=== PATIENT | female | born 1935 | race Caucasian/White ===

== ENCOUNTER 2018-12-03 13:00 | Emergency (ER) | payer OTHER, BC ==
[2018-12-03 13:40] VITALS: BP 158/98; PULSE 82; TEMP 97.9; BMI 22.1
--- NOTE | 2018-12-03 14:00 | PDOC ---
History of Present Illness - General Chief Complaint: Pain Stated Complaint: LEFT LATERAL RIB PAIN Time Seen by Provider: 12/03/18 13:12 History Source: Patient Exam Limitations: No Limitations - History of Present Illness Initial Comments: 12/03/18 14:12 83y F hx of RA, HL, HTN presents with L rib pain. Pt states that she was donig well until a few days ago, noticed she started having intermittnt L back/rib/ scapula pain with numnbess on the L arm. Pain seemd to worsend more around 12pm when she was having lunch. Pt denies any trauma/falls/injuries. pt notse the pain seems worse when she moves her L arm incertain positions. denies any sob, n/v, diaprhosis, max, chest pain. notse she also has chronic L arm pain due to prior L humeral fracture that was repaired but 'didnt heal properly'. pt denies any new numbenmss/tingling/weakness of the extermities. denies headache, neck pain, fever/chills, abd pain, diarrhae, dysuria. Past History - Past Medical History Allergies/Adverse Reactions: Allergies Allergy/AdvReac Type Severity Reaction Status Date / Time codeine Allergy Intermediate PALPATATION Verified 04/29/13 08:06 S Home Medications: Ambulatory Orders Albuterol 0.083% Nebulizer Ana Luisa [Ventolin 0.083%] 1 neb NEB QID PRN 04/27/13 Metformin HCl [Riomet] 500 mg PO BID 04/27/13 Methotrexate [Mexate] 5 mg PO Q7D 04/27/13 Sertraline HCl [Zoloft] 100 mg PO DAILY 04/27/13 Hydroxychloroquine Sulfate [Plaquenil] 200 mg PO BID 12/03/18 predniSONE [Deltasone -] 4 mg PO DAILY 12/03/18 Anemia: No Asthma: Yes Cancer: No Cardiac Disorders: No CVA: No COPD: No Dementia: No Diabetes: Yes (TYPE II) GI Disorders: Yes (GERD) Disorders: Yes (INCONTINENCE) HTN: Yes Hypercholesterolemia: Yes Liver Disease: No Seizures: No Thyroid Disease: No Other medical history: RHEUMATOID ARTHRITIS, CHRONIC LEFT ARM PAIN/NUMBNESS - Surgical History Abdominal Surgery: Yes Appendectomy: No Cardiac Surgery: No Cholecystectomy: Yes Lung Surgery: No Neurologic Surgery: No Orthopedic Surgery: Yes - Suicide/Smoking/Psychosocial Hx Smoking Status: No Smoking History: Former smoker Have you smoked in the past 12 months: No Number of Cigarettes Smoked Daily: 0 If you are a former smoker, when did you quit?: 40 YEARS AGO Information on smoking cessation initiated: No Hx Alcohol Use: No Drug/Substance Use Hx: No Substance Use Type: None Hx Substance Use Treatment: No Review of Systems - Review of Systems Able to Perform ROS?: Yes Comments:: 12/03/18 14:16 CONSTITUTIONAL: No reported: Fever, Chills, Diaphoresis, Generalized Weakness, Malaise, Loss of Appetite HEENT: No reported: Rhinorrhea, Nasal Congestion, Throat Pain, Throat Swelling, Difficulty Swallowing, Mouth Swelling, Ear Pain, Eye Pain, Visual Changes CARDIOVASCULAR: No reported: Chest Pain, Syncope, Palpitations, Irregular Heart Rate, Lightheadedness, Peripheral Edema RESPIRATORY: No reported: Cough, Shortness of Breath, SOB with Exertion, Orthopnea, Wheezing , Stridor, Hemoptysis GASTROINTESTINAL: No reported: Abdominal pain, Abdominal Distension, Nausea, Vomiting, Diarrhea, Constipation, Melena, Hematochezia GENITOURINARY: No reported: Dysuria, Frequency, Urgency, Hesitancy, Flank Pain, Genital Pain MUSCULOSKELETAL: +L rib/shoulder pain No reported: Myalgia, Arthralgia, Joint Swelling, Neck Pain SKIN: No reported: Rash, Itching, Pallor HEMEATOLOGIC/IMMUNOLOGIC: No reported: Easy Bleeding, Easy Bruising, Lymphadenopathy, Frequent infections ENDOCRINE: No reported: Unexplained Weight Gain, Unexplained Weight Loss, Heat Intolerance , Cold Intolerance NEUROLOGIC: No reported: Headache, Focal Weakness, Vertigo, Lightheadedness, Unsteady Gait, Seizure, Mental Status Changes, Incontinence PSYCHIATRIC: No reported: Anxiety, Depression *Physical Exam - Vital Signs Last Vital Signs Temp Pulse Resp BP Pulse Ox 97.9 F 82 19 158/98 97 12/03/18 13:09 12/03/18 13:09 12/03/18 13:09 12/03/18 13:09 12/03/18 13:09 - Physical Exam Comments: 12/03/18 14:16 GENERAL: The patient is awake, alert, and fully oriented, Nontoxic - in no acute distress. HEAD: Normocephalic, atraumatic. EYES: extraocular movements intact, sclera anicteric, conjunctiva clear. ENT: Normal voice, Moist mucous membranes. NECK: Normal range of motion, supple LUNGS: Breath sounds equal, clear to auscultation bilaterally. No wheezes, no rhonchi, no rales. HEART: Regular rate and rhythm, without murmur, rub or gallop. ABDOMEN: Soft, nontender, No guarding, no rebound.No CVA tenderness EXTREMITIES: mlid ttp to anterior L shoulder/humreus and to the soft tissue inferior to the L scapula, no crepitus, no ecchynmosis, pain reproduced with shoulder abduction, strength otherwise 5/5 in upper/lower extremities, radial pulses symmetric, sensatio nintact throughout MSK: No focal rib ttp, no rashes, NEUROLOGICAL: No facial assymetry, Normal speech, PSYCH: Normal mood, normal affect. SKIN: Warm, Dry, normal turgor, 12/03/18 14:18 Moderate Sedation - Procedure Monitoring Vital Signs: Procedure Monitoring Vital Signs Temperature 97.9 F 12/03/18 13:09 Pulse Rate 82 12/03/18 13:09 Respiratory Rate 19 12/03/18 13:09 Blood Pressure 158/98 12/03/18 13:09 O2 Sat by Pulse Oximetry (%) 97 12/03/18 13:09 Heart Score/ECG Review - ECG Impressions Comment:: 12/03/18 14:18 EKG: Rate of 85 Normal axis normal r wave progression no st changes suggestive of ischemia impression: NSR ED Treatment Course - LABORATORY CBC & Chemistry Diagram: 12/03/18 14:20 12/03/18 14:20 - RADIOLOGY Radiology Studies Ordered: Category Date Time Status CHEST PA & LAT [RAD] Stat Radiology 12/03/18 13:37 Ordered SHOULDER-LEFT [RAD] Stat Radiology 12/03/18 13:58 Ordered Medical Decision Making - Medical Decision Making 12/03/18 14:19 suspect msk cause - as symptoms worse with movement of the arm and is reproducible pts BP in either arm symmetric, and pulse symetric- doubt dissection - will also obtain formal pa/lateral cxr to r/o mediastinal widening consider acs -w ill obtain ekg/trop will give tylenol for pain 12/03/18 15:12 upon further discussion - pt states she fell 3 weeks ago, had fallen on her R side wit mild R rib pain, has been using a heating pad on her ribs, but is feeling much better. possibilty of over use injury if she is using her L arm to compensate for her R sided injury. no signs of widned aorta no her xray [place] xray noted for old humeral fx wo acute injury 12/03/18 17:26 trop neg x 2 suspect her pain is msk in origin will dc with supportive care return precautions were discussed I discussed the physical exam findings, ancillary test results and final diagnoses with the patient. I answered all of the patient's questions. The patient was satisfied with the care received and felt comfortable with the discharge plan and treatment plan. The patient will call their primary care physician within 24 hours to arrange follow-up and will return to the Emergency Department with any new, persistent or worsening symptoms. *DC/Admit/Observation/Transfer Diagnosis at time of Disposition: Back pain Qualifiers: Back pain location: back pain in unspecified location Chronicity: acute Back pain laterality: left Qualified Code(s): M54.9 - Dorsalgia, unspecified - Discharge Dispostion Disposition: HOME Condition at time of disposition: Improved Decision to Admit order: No - Referrals Referrals: Vickie Juan MD [Primary Care Provider] - - Patient Instructions Printed Discharge Instructions: DI for Thoracic Back Pain Additional Instructions: Return to the emergency department immediately with ANY new, persistent or worsening symptoms including chest pain, shortness of breath, coghing blood or any other concerns. Take tylenol and ibuprofen every 6 hours for the next 3 days. Rest your arm. Use a heating pad for comfort. You MUST call and follow up with your doctor in 3-4 days for further evaluation of your symptoms. Results were discussed with you. Please make sure your doctor reviews the results of your emergency evaluation. Print Language: NICARAGUAN - Post Discharge Activity
[2018-12-03] MEDS ORDERED: ACETAMINOPHEN 325 MG TABLET (FP) PO ONE (14:18)
[2018-12-03] MEDS ORDERED: ACETAMINOPHEN 325 MG TABLET (FP) ONE (14:29)
[2018-12-03 14:44] LABS: BASO % 0.5 % (0-2.0); EOS % 2.2 % (0-4.5); HEMATOCRIT 35.7 % (32.4-45.2); HEMOGLOBIN 11.5 GM/dl (10.7-15.3); LYMPH % 12.3 % (8-40); MCH 30.8 pg (25.7-33.7); MCHC 32.2 g/dl (32.0-36.0); MEAN CELL VOLUME 95.7 fl (80-96); MEAN PLT VOLUME 7.4 fl (7.5-11.1); MONO % 6.2 % (3.8-10.2); NEUT % 78.8 % (42.8-82.8); PLATELET COUNT 389 K/MM3 (134-434); RBC 3.74 M/mm3 (3.60-5.2); RDW 16.2 % (11.6-15.6); WHITE BLOOD COUNT 9.5 K/mm3 (4.0-10.8)
[2018-12-03 15:04] LABS: ALBUMIN 3.6 g/dl (3.4-5.0); ALK PHOS 65 U/L (45-117); ANION GAP 15 MMOL/L (8-16); BILIRUBIN,TOTAL 0.7 mg/dl (0.2-1); BLOOD UREA NITROGEN 21 mg/dl (7-18); CALCIUM 9.4 mg/dl (8.5-10); CHLORIDE 95 mmol/L (98-107); CO2 26 mmol/L (21-32); CREATININE 0.6 mg/dl (0.55-1.3); GLUCOSE,RANDOM 89 mg/dl (74-106); POTASSIUM 4.2 mmol/L (3.5-5.1); SGOT/AST 29 U/L (15-37); SGPT/ALT 24 U/L (13-61); SODIUM 136 mmol/L (136-145); TOT PROT 6.7 g/dl (6.4-8.2)
--- NOTE | 2018-12-03 15:42 | EKG ---
Test Reason : Blood Pressure : / mmHG Vent. Rate : 085 BPM Atrial Rate : 085 BPM P-R Int : 156 ms QRS Dur : 074 ms QT Int : 378 ms P-R-T Axes : 066 029 058 degrees QTc Int : 449 ms NORMAL SINUS RHYTHM WITH SINUS ARRHYTHMIA NORMAL ECG WHEN COMPARED WITH ECG OF 23-AUG-2008 15:07, NO SIGNIFICANT CHANGE WAS FOUND Confirmed by HUNTER FUNEZ MD ([id number]) on 12/03/2018 3:41:46 PM Referred By: TRACY CARR Confirmed By:HUNTER FUNEZ MD
[2018-12-03] MEDS ORDERED: IBUPROFEN 400 MG TABLET (FP) PO ONE ×2 (17:09→17:13)
== END 2018-12-03 17:37 | disposition home or self-care (01) ==
LOC: FER 13:00
DX: M54.9 Dorsalgia, unspecified (principal); M54.6 Pain in thoracic spine; M06.9 Rheumatoid arthritis, unspecified; I10 Essential (primary) hypertension; E11.9 Type 2 diabetes mellitus without complications; E78.00 Pure hypercholesterolemia, unspecified; J45.909 Unspecified asthma, uncomplicated; K21.9 Gastro-esophageal reflux disease without esophagitis; Z88.5 Allergy status to narcotic agent; Z79.84 Long term (current) use of oral hypoglycemic drugs
CPT/HCPCS: 36415; 71046-TC-FY; 73030-TC-LT-FY; 80053; 82550; 82553; 84484; 85025; 93005; 99283-25

== ENCOUNTER 2019-04-12 15:00 | Emergency (ER) | payer OTHER, BC ==
--- NOTE | 2019-04-12 15:15 | PDOC ---
History of Present Illness - General Chief Complaint: Chest Pain Stated Complaint: CHEST HEAVINESS FOR 2 1/2 WKS Time Seen by Provider: 04/12/19 15:14 History Source: Patient, Family (Daughter) Exam Limitations: No Limitations - History of Present Illness Initial Comments: 04/12/19 16:06 Deena Hwang is a 83yF with PMHx of rheumatoid arthritis, diabetes, and asthma presenting with chest tightness. Tightness started 1 mo ago, worsened over 2 weeks then gradually improved. Tightness mild, substernal region, constant throughout day. Does not radiate to chest or arms. Tightness better with exercise. Associated infrequent coughing and mild shortness of breath with chest tightness. Has been taking inhaler 2x/day for last month with questionable symptom improvement. Heavy Equipment Operator/Paver told her to go to ED last week but presented today because she had a road train driver. Past History - Travel Traveled outside of the country in the last 30 days: No Close contact w/someone who was outside of country & ill: No - Past Medical History Allergies/Adverse Reactions: Allergies Allergy/AdvReac Type Severity Reaction Status Date / Time codeine Allergy Intermediate PALPATATION Verified 04/29/13 08:06 S Home Medications: Ambulatory Orders Albuterol 0.083% Nebulizer Ana Luisa [Ventolin 0.083%] 1 neb NEB QID PRN 04/27/13 Sertraline HCl [Zoloft] 100 mg PO DAILY 04/27/13 Hydroxychloroquine Sulfate [Plaquenil] 200 mg PO DAILY 12/03/18 predniSONE [Deltasone -] 4 mg PO DAILY 12/03/18 Adalimumab [Humira] 10 mg SQ 04/12/19 Metformin HCl [Glucophage] 500 mg PO BID 04/12/19 Anemia: No Asthma: Yes Cancer: No Cardiac Disorders: No CVA: No COPD: No Dementia: No Diabetes: Yes (TYPE II) GI Disorders: Yes (GERD) Disorders: Yes (INCONTINENCE) HTN: Yes Hypercholesterolemia: Yes Liver Disease: No Seizures: No Thyroid Disease: No - Surgical History Abdominal Surgery: Yes Appendectomy: No Cardiac Surgery: No Cholecystectomy: Yes Lung Surgery: No Neurologic Surgery: No Orthopedic Surgery: Yes - Suicide/Smoking/Psychosocial Hx Smoking Status: No Smoking History: Former smoker Have you smoked in the past 12 months: No Number of Cigarettes Smoked Daily: 0 If you are a former smoker, when did you quit?: 40 YEARS AGO Hx Alcohol Use: No Drug/Substance Use Hx: No Substance Use Type: None Hx Substance Use Treatment: No Cardiac Specific PMH - Complaint Specific PMHX Angina: No Pacemaker: No Pulmonary Embolus: No Valvular Heart Disease: No Comments:: 04/12/19 20:30 heart palpitations with codeine 25 years ago Review of Systems - Review of Systems Able to Perform ROS?: Yes Is the patient limited Bahamian proficient: No Constitutional: No: Chills, Fever, Weakness HEENTM: No: Eye Pain, Ear Pain, Nose Pain Respiratory: Yes: Shortness of Breath. No: Cough Cardiac (ROS): Yes: Chest Tightness. No: Irregular Heart Rate, Lightheadedness ABD/GI: No: Constipated, Diarrhea : No: Dysuria, Flank Pain Musculoskeletal: Yes: Joint Swelling (minimal, rheumatoid arthritis). No: Back Pain Integumentary: No: Bruising, Flushing, Rash Neurological: No: Paresthesia, Seizure Endocrine: No: Flushing, Increased Urine *Physical Exam - Vital Signs Last Vital Signs Temp Pulse Resp BP Pulse Ox 98.6 F 72 16 153/68 95 04/12/19 15:03 04/12/19 15:03 04/12/19 15:03 04/12/19 18:00 04/12/19 15:03 - Physical Exam General Appearance: Yes: Nourished, Appropriately Dressed HEENT: positive: ROLF, Normal Voice. negative: Photophobia, Nasal Congestion Respiratory/Chest: positive: Decreased Breath Sounds (bilaterally). negative: Accessory Muscle Use, Labored Respiration, Crackles, Rales, Rhonchi, Stridor, Wheezing, Hyperresonant, Plerual Rub Cardiovascular: positive: Regular Rhythm, Regular Rate, S1, S2 (normal). negative: Edema, JVD, Murmur Gastrointestinal/Abdominal: positive: Normal Bowel Sounds, Flat, Soft. negative : Guarding, Rebound Extremity: positive: Normal Capillary Refill, Normal Inspection Integumentary: positive: Normal Color. negative: Ecchymosis, Bruising Neurologic: positive: Fully Oriented, Alert Heart Score/ECG Review - History History: Slightly suspicious - Electrocardiogram EKG: Normal - Age Age: >/= 65 - Risk Factors Risk Factors Heart Score: Yes Hx Hypertension, Yes Hx Diabetes, Yes Smoking History Based on the list above the patient has:: >/=3 risk factors or Hx atherosclerotic disease - Troponin Troponin: </= normal limit - Score Heart Score - Total: 4 (discharged home given resolution of chest tightness, stable condition in ED) ED Treatment Course - LABORATORY CBC & Chemistry Diagram: 04/12/19 16:50 04/12/19 16:50 - ADDITIONAL ORDERS Additional order review: Laboratory Results 04/12/19 04/12/19 04/12/19 16:50 16:50 16:50 D-Dimer 450 Sodium 137 Potassium 4.6 Chloride 97 L Carbon Dioxide 30 Anion Gap 10 BUN 23.0 H Creatinine 0.5 L Est GFR (CKD-EPI)AfAm 104.46 Est GFR (CKD-EPI)NonAf 90.13 Random Glucose 95 Calcium 9.5 Total Bilirubin 0.5 AST 24 ALT 21 Alkaline Phosphatase 49 Troponin I < 0.03 Total Protein 6.4 Albumin 3.7 04/12/19 16:50 RBC 3.81 MCV 89.6 MCHC 31.9 L RDW 13.8 D MPV 8.3 Neutrophils % 78.0 Lymphocytes % 14.4 Monocytes % 7.0 Eosinophils % 0.5 Basophils % 0.1 - RADIOLOGY Radiology Studies Ordered: Category Date Time Status CHEST PA & LAT [RAD] Stat Radiology 04/12/19 15:58 Completed Medical Decision Making - Critical Care Time Total Critical Care Time (minutes): 30 Critical Care Statement: The care of this patient involved high complexity decision making to prevent further life threatening deterioration of the patient 's condition and/or to evaluate & treat vital organ system(s) failure or risk of failure. - Medical Decision Making 04/12/19 16:48 Ordered CXR, EKG, d-dimer, cardiac workup rule out cardiac, lung, PE causes EKG normal CXR unchanged per report trop negative d-dimer negatie Deena Hwang is a 83y F with PMHx of rheumatoid arthritis, diabetes, and asthma presenting with chest tightness. Likely MSK or anxiety origin. Unlikely to be due to cardiac causes (atypical symptom presentation, trop negative, normal EKG). Unlikely to be infectious etiology due to unchanged chest XR, afebrile, normal WBC count. PE ruled out with normal D-dimer. Decided to discharge patient with instructions to follow up with outpatient project manager finance to assess cardiac function in setting of elevated HEART score of 4 (age > 65, 3 risk factors) based on stable vitals, normal cardiac workup, and resolution of chest tightness in ED. *DC/Admit/Observation/Transfer Diagnosis at time of Disposition: Chest tightness - Discharge Dispostion Disposition: HOME Condition at time of disposition: Stable Decision to Admit order: No - Referrals Referrals: Vickie Juan MD [Primary Care Provider] - Chantale Zarate MD [Staff Physician] - Sotero Craig MD [Staff Physician] - - Patient Instructions Printed Discharge Instructions: DI for Chest Pain Additional Instructions: Please see listed project manager finance Dr. Craig to follow up on ED visit. Come back to the emergency room if experiencing worsening chest tightness, vomiting, or shortness of breath. Print Language: ROMANIAN - Post Discharge Activity
[2019-04-12 16:12] VITALS: PULSE 72; TEMP 98.6; BMI 20.1
[2019-04-12 17:25] LABS: ALBUMIN 3.7 g/dl (3.4-5.0); BILIRUBIN,TOTAL 0.5 mg/dl (0.2-1); CALCIUM 9.5 mg/dl (8.5-10); CREATININE 0.5 mg/dl (0.55-1.3); POTASSIUM 4.6 mmol/L (3.5-5.1); TOT PROT 6.4 g/dl (6.4-8.2)
[2019-04-12 17:44] LABS: BASO % 0.1 % (0-2.0); EOS % 0.5 % (0-4.5); HEMATOCRIT 34.1 % (32.4-45.2); HEMOGLOBIN 10.9 GM/dl (10.7-15.3); LYMPH % 14.4 % (8-40); MCH 28.6 pg (25.7-33.7); MCHC 31.9 g/dl (32.0-36.0); MEAN CELL VOLUME 89.6 fl (80-96); MEAN PLT VOLUME 8.3 fl (7.5-11.1); PLATELET COUNT 294 K/MM3 (134-434); RBC 3.81 M/mm3 (3.60-5.2); RDW 13.8 % (11.6-15.6); WHITE BLOOD COUNT 7.1 K/mm3 (4.0-10.8)
[2019-04-12 18:10] VITALS: BP 153/68
--- NOTE | 2019-04-13 13:49 | EKG ---
Test Reason : Blood Pressure : / mmHG Vent. Rate : 070 BPM Atrial Rate : 070 BPM P-R Int : 136 ms QRS Dur : 088 ms QT Int : 386 ms P-R-T Axes : 075 026 055 degrees QTc Int : 416 ms NORMAL SINUS RHYTHM NORMAL ECG WHEN COMPARED WITH ECG OF 03-DEC-2018 13:45, NO SIGNIFICANT CHANGE WAS FOUND Confirmed by MD PRIYA, NIKKI ([id number]) on 04/13/2019 1:49:05 PM Referred By: DENYS JEFFERSON Confirmed By:NIKKI POWERS MD
--- NOTE | 2019-04-14 09:17 | PDOC ---
Attending Attestation - Resident Resident Name: Aria,Jarad - ED Attending Attestation I have performed the following: I have examined & evaluated the patient, The case was reviewed & discussed with the resident, I agree w/resident's findings & plan, Exceptions are as noted - HPI HPI: 04/14/19 09:15 Atypical chest pain for approximately 1 month, seems related to anxiety. Pain disappears when patient is active, exercising, doing yoga. No associated cardiac symptoms. - Physicial Exam PE: 04/14/19 09:16 Physical exam normal. Patient in no pain or other distress at present EKG and enzymes show no evidence of acute cardiac syndrome. - Medical Decision Making 04/14/19 09:16 Assessment: Atypical chest pain, probably related to anxiety Plan: Reassure. Return to ER if worsening symptoms. Otherwise see cement finisher helper for further evaluation, consider stress testing if symptoms persist.
== END 2019-04-12 18:15 | disposition home or self-care (01) ==
LOC: FER 15:00
DX: R07.89 Other chest pain (principal); E11.9 Type 2 diabetes mellitus without complications; J45.909 Unspecified asthma, uncomplicated; M06.9 Rheumatoid arthritis, unspecified; I10 Essential (primary) hypertension; Z87.891 Personal history of nicotine dependence
CPT/HCPCS: 36415; 71046-TC-FY; 80053; 84484; 85025; 85379; 93005; 99283-25

== ENCOUNTER 2019-12-04 12:25 | Emergency (ER) | payer OTHER, BC ==
[2019-12-04 13:19] VITALS: BP 139/76; PULSE 72; TEMP 98.5; BMI 20.1
[2019-12-04] MEDS ORDERED: diphenhydrAMINE HCL 25 MG CAPSULE (FP) PO ONE ×2 (13:29→13:36)
--- NOTE | 2019-12-04 13:29 | PDOC ---
History of Present Illness - General Chief Complaint: Rash Stated Complaint: RASH Time Seen by Provider: 12/04/19 12:52 History Source: Patient Exam Limitations: No Limitations - History of Present Illness Initial Comments: 84 yo F history RA presents with rash. She states she has been having the rash for 3 weeks. She previously followed up with her pump erector, who stated it might be an allergy to Humira, so she stopped it a few weeks ago. She has continued to have rash despite this. The rash is improving over time, but has not completely resolved. She saw a core java software engineer who recommended topical steroids, which she has been using. Denies fever. Past History - Past Medical History Allergies/Adverse Reactions: Allergies Allergy/AdvReac Type Severity Reaction Status Date / Time codeine Allergy Intermediate PALPATATION Verified 12/04/19 13:00 S Home Medications: Ambulatory Orders Hydroxychloroquine Sulfate [Plaquenil] 200 mg PO DAILY 12/03/18 Adalimumab [Humira] 10 mg SQ ASDIR 04/12/19 Metformin HCl [Glucophage] 500 mg PO BID 04/12/19 Betamethasone/Propylene Glyc [Betamethasone Dp Aug 0.05% Crm] 15 gm TP BID 12/04 Folic Acid 1 mg PO DAILY 12/04/19 Methylprednisolone [Medrol -] 4 mg PO DAILY 12/04/19 Sertraline HCl [Zoloft -] 50 mg PO DAILY 12/04/19 Ursodiol [Actigall] 300 mg PO BID 12/04/19 predniSONE [Deltasone -] 40 mg PO DAILY #6 tablet 12/04/19 Anemia: No Asthma: Yes Cancer: No Cardiac Disorders: No CVA: No COPD: No Dementia: No Diabetes: Yes GI Disorders: Yes (GERD) Disorders: Yes (INCONTINENCE) HTN: Yes Hypercholesterolemia: Yes Liver Disease: No Seizures: No Thyroid Disease: No - Surgical History Abdominal Surgery: Yes Appendectomy: No Cardiac Surgery: No Cholecystectomy: Yes Lung Surgery: No Neurologic Surgery: No Orthopedic Surgery: Yes - Psycho Social/Smoking Cessation Hx Smoking Status: No Smoking History: Never smoked Have you smoked in the past 12 months: No Number of Cigarettes Smoked Daily: 0 If you are a former smoker, when did you quit?: 40 YEARS AGO Hx Alcohol Use: No Drug/Substance Use Hx: No Substance Use Type: None Hx Substance Use Treatment: No *Physical Exam - Vital Signs Last Vital Signs Temp Pulse Resp BP Pulse Ox 98.5 F 72 16 139/76 98 12/04/19 12:36 12/04/19 12:36 12/04/19 12:36 12/04/19 12:36 12/04/19 12:36 - Physical Exam GENERAL: Awake, alert, and fully oriented, in no acute distress HEAD: No signs of trauma EYES: PERRLA, EOMI, sclera anicteric, conjunctiva clear ENT: Auricles normal inspection, hearing grossly normal, nares patent, oropharynx clear without exudates. Moist mucosa. No oral lesions. NECK: Normal ROM, supple, no lymphadenopathy, JVD, or masses LUNGS: Breath sounds equal, clear to auscultation bilaterally. No wheezes, and no crackles HEART: Regular rate and rhythm, normal S1 and S2, no murmurs, rubs or gallops ABDOMEN: Soft, nontender, normoactive bowel sounds. No guarding, no rebound. No masses EXTREMITIES: Normal range of motion, no edema. No clubbing or cyanosis. No cords, erythema, or tenderness NEUROLOGICAL: Cranial nerves II through XII grossly intact. Normal speech, normal gait. Motor and sensation intact SKIN: Warm, dry, normal turgor. +Multiple erythematous, raised, excoriated lesions to the legs B/L (upper and lower), as well as to the trunk. ED Treatment Course - LABORATORY CBC & Chemistry Diagram: 12/04/19 13:20 12/04/19 13:20 Medical Decision Making - Medical Decision Making Pt had been counseled by her pump erector that if it was an allergy to the Humira, it may last a few weeks after discontinuing the Humira. This is likely the reason, as all of her other meds were long-term, not recent. Recommended higher dose of prednisone for a few days (as she is currently on an extremely small dose daily), then return to her baseline. Discharge - Discharge Information Problems reviewed: Yes Clinical Impression/Diagnosis: Rash Condition: Stable Disposition: HOME - Admission No - Additional Discharge Information Prescriptions: predniSONE [Deltasone -] 40 mg PO DAILY #6 tablet - Follow up/Referral Referrals: Vickie Juan MD [Primary Care Provider] - - Patient Discharge Instructions Patient Printed Discharge Instructions: DI for General Allergic Reactions, DI for Rash - Post Discharge Activity
[2019-12-04 13:45] LABS: BASO % 0.8 % (0-2.0); EOS % 1.2 % (0-4.5); LYMPH % 15.3 % (8-40); MCH 28.2 pg (25.7-33.7); MCHC 32.3 g/dl (32.0-36.0); MEAN CELL VOLUME 87.2 fl (80-96); MEAN PLT VOLUME 7.3 fl (7.5-11.1); MONO % 4.4 % (3.8-10.2); NEUT % 78.3 % (42.8-82.8); PLATELET COUNT 299 K/MM3 (134-434); RBC 3.56 M/mm3 (3.60-5.2); RDW 14.5 % (11.6-15.6); WHITE BLOOD COUNT 7.1 K/mm3 (4.0-10.8)
[2019-12-04 13:53] LABS: ALBUMIN 3.1 g/dl (3.4-5.0); BILIRUBIN,TOTAL 0.4 mg/dl (0.2-1); CALCIUM 8.9 mg/dl (8.5-10); CREATININE 0.5 mg/dl (0.55-1.3); POTASSIUM 4.3 mmol/L (3.5-5.1); TOT PROT 6.2 g/dl (6.4-8.2)
== END 2019-12-04 14:25 | disposition home or self-care (01) ==
LOC: FER 12:25
DX: R21 Rash and other nonspecific skin eruption (principal); I10 Essential (primary) hypertension; E78.00 Pure hypercholesterolemia, unspecified; K21.9 Gastro-esophageal reflux disease without esophagitis
CPT/HCPCS: 36415; 80053; 85025; 99283-25

== ENCOUNTER 2021-05-21 09:12 | Inpatient (IN) | payer OTHER, BC ==
[2021-05-21 09:56] LABS: HEMOGLOBIN 10.3 GM/dl (10.7-15.3); MCH 28.6 pg (25.7-33.7)
[2021-05-21 10:01] LABS: HEMATOCRIT 32.2 % (32.4-45.2); MCHC 32.1 g/dl (32.0-36.0); MEAN CELL VOLUME 89.3 fl (80-96); MEAN PLT VOLUME 7.1 fl (7.5-11.1); PLATELET COUNT 402 10^3/uL (134-434); RBC 3.61 M/mm3 (3.60-5.2); RDW 14.4 % (11.6-15.6); WHITE BLOOD COUNT 14.1 K/mm3 (4.0-10.8)
[2021-05-21 10:03] LABS: ALBUMIN 3.1 g/dl (3.4-5.0); ALK PHOS 372 U/L (45-117); ANION GAP 12 MMOL/L (8-16); CHLORIDE 94 mmol/L (98-107); CO2 29 mmol/L (21-32); CREATININE 0.4 mg/dl (0.55-1.3); GLUCOSE,RANDOM 185 mg/dl (74-106); SGOT/AST 308 U/L (15-37); SODIUM 135 mmol/L (136-145); TOT PROT 6.3 g/dl (6.4-8.2)
[2021-05-21 10:22] LABS: PLATELET ESTIMATE SLT INCREASE
[2021-05-21] MEDS ORDERED: SODIUM CHLORIDE 0.9% 500 ML INFUS.BAG IV ONE (10:23)
[2021-05-21 10:24] LABS: SGPT/ALT 440 U/L (13-61)
[2021-05-21] MEDS ORDERED: ACETAMINOPHEN 1000 MG/100 ML VIAL (NON FORMULARY) IVPB ONE (10:24)
[2021-05-21] MEDS ORDERED: FAMOTIDINE 20 MG/50 ML IVPB 20 MG/50 ML MG IVPB ONE ×2 (10:25→10:29)
[2021-05-21] MEDS ORDERED: ACETAMINOPHEN INJECTION 100 ML IVPB ONE (10:29)
[2021-05-21 10:46] LABS: LIPASE 217 U/L (73-393)
[2021-05-21] MEDS ORDERED: PIPERACILLIN/TAZOB 3.375 GM 3.375 GM in DEXTROSE 5%-WATER - 50 ML IVPB SCH (16:00)
[2021-05-21 16:14] LABS: AMYLASE 55 U/L (25-115)
[2021-05-21 17:27] VITALS: BMI 17.6
[2021-05-21] MEDS ORDERED: DEXTROSE 5%-WATER - 50 ML IVPB ONE ×2 (17:34→21:48)
[2021-05-21] MEDS ORDERED: PIPERACILLIN/TAZOBACTAM 3.375 GM VIAL IVPB ONE ×2 (17:34→21:48)
[2021-05-21] MEDS: SODIUM CHLORIDE 1,000 ML IV SCH (17:43)
[2021-05-21] MEDS: PIPERACILLIN/TAZOB 3.375 GM 3.375 GM in DEXTROSE 5%-WATER - 50 ML IVPB SCH ×2 (17:45→22:09)
[2021-05-21] MEDS: INSULIN SLIDING SCALE (NOVOLOG) 1 VIAL SQ SCH ×2 (17:55→22:40)
[2021-05-21 18:29] LABS: HEMATOCRIT 26.3 % (32.4-45.2); HEMOGLOBIN 8.8 GM/dl (10.7-15.3); MCHC 33.6 g/dl (32.0-36.0); MEAN CELL VOLUME 89.5 fl (80-96); MEAN PLT VOLUME 6.8 fl (7.5-11.1); PLATELET COUNT 277 10^3/uL (134-434); RBC 2.94 M/mm3 (3.60-5.2); RDW 14.6 % (11.6-15.6); WHITE BLOOD COUNT 22.2 K/mm3 (4.0-10.8)
[2021-05-21] MEDS ORDERED: ACETAMINOPHEN 1000 MG/100 ML VIAL (NON FORMULARY) IVPB PRN (18:37)
[2021-05-21 18:45] LABS: ALBUMIN 2.7 g/dl (3.4-5.0); BILIRUBIN,DIRECT 3.2 mg/dL (0.0-0.2); BILIRUBIN,TOTAL 4.6 mg/dl (0.2-1); CREATININE 0.3 mg/dl (0.55-1.3); TOT PROT 5.5 g/dl (6.4-8.2)
[2021-05-21] MEDS ORDERED: MAGNESIUM SULF 50% (8.12 MEQ/2 ML-1 GM VIAL) IVPB ONE (18:52)
[2021-05-21 20:48] LABS: PLATELET ESTIMATE ADEQUATE
[2021-05-21] MEDS: KCL 10 MEQ IVPB 10 MEQ/100 ML INFUS.BAG IVPB SCH ×2 (20:52→22:40)
[2021-05-21] MEDS: FAMOTIDINE 20 MG/50 ML IVPB 20 MG/50 ML MG IVPB SCH (23:25)
[2021-05-22] MEDS ORDERED: DEXTROSE 5%-WATER - 50 ML IVPB ONE ×3 (03:10→18:04)
[2021-05-22] MEDS ORDERED: PIPERACILLIN/TAZOBACTAM 3.375 GM VIAL IVPB ONE ×3 (03:10→18:04)
[2021-05-22] MEDS ORDERED: KCL 10 MEQ IVPB 10 MEQ/100 ML INFUS.BAG IVPB SCH (03:15)
[2021-05-22] MEDS: PIPERACILLIN/TAZOB 3.375 GM 3.375 GM in DEXTROSE 5%-WATER - 50 ML IVPB SCH ×2 (03:22→10:41)
[2021-05-22] MEDS: KCL 10 MEQ IVPB 10 MEQ/100 ML INFUS.BAG IVPB SCH (03:24)
[2021-05-22] MEDS: INSULIN SLIDING SCALE (NOVOLOG) 1 VIAL SQ SCH ×3 (06:27→17:04)
[2021-05-22 07:17] LABS: HEMATOCRIT 27.3 % (32.4-45.2); HEMOGLOBIN 9.1 GM/dl (10.7-15.3); MCH 29.7 pg (25.7-33.7); MCHC 33.3 g/dl (32.0-36.0); MEAN CELL VOLUME 89.4 fl (80-96); MEAN PLT VOLUME 6.8 fl (7.5-11.1); PLATELET COUNT 228 10^3/uL (134-434); RBC 3.05 M/mm3 (3.60-5.2); RDW 14.6 % (11.6-15.6); WHITE BLOOD COUNT 22.6 K/mm3 (4.0-10.8)
[2021-05-22 07:30] LABS: ACTIVATED PTT 26.5 SECONDS (25.2-36.5)
[2021-05-22 07:33] LABS: ALBUMIN 2.6 g/dl (3.4-5.0); BILIRUBIN,TOTAL 5.1 mg/dl (0.2-1); CALCIUM 7.9 mg/dl (8.5-10); CREATININE 0.6 mg/dl (0.55-1.3); MAGNESIUM 1.8 mg/dL (1.8-2.4); PHOSPHOROUS 3.9 mg/dl (2.5-4.9); TOT PROT 5.4 g/dl (6.4-8.2)
[2021-05-22 07:35] LABS: INR 1.29 (0.82-1.09); PROTHROMBIN TIME (PATIENT) 14.2 SEC (10.2-13.0)
[2021-05-22 08:21] LABS: TOXIC GRANULATION FEW
[2021-05-22] MEDS: FAMOTIDINE 20 MG/50 ML IVPB 20 MG/50 ML MG IVPB SCH (10:40)
[2021-05-22] MEDS ORDERED: PIPERACILLIN/TAZOB 3.375 GM 3.375 GM in DEXTROSE 5%-WATER - 50 ML IVPB SCH (18:00)
[2021-05-22] MEDS: SODIUM CHLORIDE 1,000 ML IV SCH (18:28)
[2021-05-22 20:37] VITALS: BP 169/71; PULSE 94; TEMP 97.8
== END 2021-05-22 21:14 | disposition short-term general hospital (02) | DRG 872 ==
LOC: FER 09:12 → FM/S 16:44
PROVIDERS: ADMIT Internal Medicine; ATTEND Nurse Practitioner Acute Care
DX: A41.89 Other specified sepsis (principal); K80.32 Calculus of bile duct with acute cholangitis without obstruction; E11.9 Type 2 diabetes mellitus without complications; I10 Essential (primary) hypertension; E78.5 Hyperlipidemia, unspecified; M06.9 Rheumatoid arthritis, unspecified; K21.9 Gastro-esophageal reflux disease without esophagitis; F32.9 Major depressive disorder, single episode, unspecified; E87.6 Hypokalemia; E83.42 Hypomagnesemia; D72.829 Elevated white blood cell count, unspecified
CPT/HCPCS: 36415; 71045-TC-FY; 74177-TC; 74182-TC; 76705-TC; 80053; 80076; 81003; 81015; 82150; 82962; 83605; 83690; 83735; 84100; 84484; 85025; 85610; 85730; 86850; 86900; 86901; 87040; 87086; 87186; 93005; 99285-25; A9579; C1887; C9803; J0131; Q9967; U0003; U0005

== ENCOUNTER 2021-10-01 19:55 | Emergency (ER) | payer OTHER, BC ==
[2021-10-01 20:16] VITALS: BP 158/79; PULSE 89; TEMP 97.8; BMI 17.6
== END 2021-10-01 22:35 | disposition left against medical advice (07) ==
LOC: SUPCPDRO 19:55 → FER 19:55
DX: S22.31XA Fracture of one rib, right side, initial encounter for closed fracture (principal); W01.0XXA Fall on same level from slipping, tripping and stumbling without subsequent striking against object, initial encounter; Y92.129 Unspecified place in nursing home as the place of occurrence of the external cause
CPT/HCPCS: 70450-TC; 71046-TC-FY; 71101-TC-RT-FY; 99285-25

== ENCOUNTER 2021-12-20 19:25 | Emergency (ER) | payer OTHER, BC ==
[2021-12-20 19:40] VITALS: BMI 18.3
[2021-12-20 20:08] VITALS: BP 146/71; PULSE 95; TEMP 98.8
[2021-12-20] MEDS ORDERED: SODIUM CHLORIDE 1,000 ML IV ONE (20:57)
[2021-12-20 21:14] LABS: ALBUMIN 3.2 g/dl (3.4-5.0); BILIRUBIN,TOTAL 0.7 mg/dl (0.2-1); CALCIUM 9.3 mg/dl (8.5-10); CREATININE 0.6 mg/dl (0.55-1.3)
[2021-12-20 22:27] LABS: BASO % 0.3 % (0-2.0); HEMATOCRIT 31.7 % (32.4-45.2); HEMOGLOBIN 10.9 GM/dL (10.7-15.3); LYMPH % 11.1 % (8-40); MCH 32.6 pg (25.7-33.7); MCHC 34.2 g/dl (32.0-36.0); MEAN CELL VOLUME 95.4 fl (80-96); MEAN PLT VOLUME 7.8 fl (7.5-11.1); MONO % 7.2 % (3.8-10.2); NEUT % 81.4 % (42.8-82.8); PLATELET COUNT 262 10^3/uL (134-434); RBC 3.33 M/mm3 (3.60-5.2); RDW 14.8 % (11.6-15.6)
[2021-12-20 22:57] LABS: EPITHELIAL CELLS FEW /hpf
== END 2021-12-20 23:02 | disposition home or self-care (01) ==
LOC: FER 19:25
PROC: 3E0337Z Introduction of Electrolytic and Water Balance Substance into Peripheral Vein, Percutaneous Approach (ICD-10-PCS; principal; 2021-12-20)
PROC: 3E0337Z Introduction of Electrolytic and Water Balance Substance into Peripheral Vein, Percutaneous Approach (ICD-10-PCS; 2021-12-20)
DX: R53.1 Weakness (principal)
CPT/HCPCS: 36415; 80053; 81003; 81015; 82550; 82962; 84484; 85025; 87086; 93005; 99284-25

== ENCOUNTER 2022-08-24 01:51 | Emergency (ER) | payer OTHER, BC ==
[2022-08-24 02:12] VITALS: RESP 16; TEMP 98.8; BMI 20.1
[2022-08-24] MEDS ORDERED: KETOROLAC TROMETHAMINE 30 MG/1 ML VIAL IM ONE (02:16)
[2022-08-24] MEDS ORDERED: KETOROLAC TROMETHAMINE 30 MG/1 ML VIAL ONE (02:20)
[2022-08-24 04:57] VITALS: PULSE 88
[2022-08-24 05:13] LABS: EPI CELLS 4 /uL (0-25.1); HYALINE CASTS 0 /uL (0-3.1); URINE APPEARANCE CLEAR; URINE BACTERIA >9,000 /uL (0-1359); URINE BILIRUBIN NEGATIVE (NEGATIVE); URINE COLOR YELLOW; URINE GLUCOSE (UA) NEGATIVE (NEGATIVE); URINE KETONE NEGATIVE (NEGATIVE); URINE LEUK ESTERASE NEGATIVE (NEGATIVE); URINE NITRITE POSITIVE (NEGATIVE); URINE PROTEIN NEGATIVE (NEGATIVE); URINE RBC 6 /uL (0-23.9); URINE WBC 14 /uL (0-25.8)
[2022-08-24] MEDS ORDERED: CEFTRIAXONE 1,000 MG in DEXTROSE 5%-WATER - 50 ML IVPB ONE (05:18)
[2022-08-24] MEDS ORDERED: cefTRIAXone SODIUM 1 GM VIAL ONE (05:28)
[2022-08-24] MEDS ORDERED: ACETAMINOPHEN 1000 MG/100 ML BAG IVPB ONE (06:42)
[2022-08-24] MEDS ORDERED: ACETAMINOPHEN INJECTION 100 ML IVPB ONE (06:42)
[2022-08-24 06:58] LABS: BASO % 0.9 % (0-2.0); HEMATOCRIT 29.2 % (32.4-45.2); HEMOGLOBIN 9.6 GM/dL (10.7-15.3); LYMPH % 9.8 % (8-40); MCH 27.4 pg (25.7-33.7); MEAN CELL VOLUME 83.2 fl (80-96); MEAN PLT VOLUME 7.6 fl (7.5-11.1); MONO % 7.1 % (3.8-10.2); NEUT % 82.2 % (42.8-82.8); PLATELET COUNT 291 10^3/uL (134-434); RBC 3.51 M/mm3 (3.60-5.2); RDW 15.9 % (11.6-15.6); WHITE BLOOD COUNT 9.7 K/mm3 (4.0-10.0)
[2022-08-24 07:20] VITALS: BP 152/95
[2022-08-24 08:11] LABS: ALBUMIN 2.8 g/dl (3.4-5.0); BILIRUBIN,TOTAL 0.3 mg/dL (0.2-1); BLOOD UREA NITROGEN 16.1 mg/dL (7-18); CALCIUM 8.6 mg/dL (8.5-10.1); CREATININE 0.3 mg/dL (0.55-1.3); TOT PROT 5.7 g/dl (6.4-8.2)
== END 2022-08-24 08:54 | disposition home or self-care (01) ==
LOC: FER 01:51
PROC: 3E0333Z Introduction of Anti-inflammatory into Peripheral Vein, Percutaneous Approach (ICD-10-PCS; principal; 2022-08-24)
PROC: 3E03329 Introduction of Other Anti-infective into Peripheral Vein, Percutaneous Approach (ICD-10-PCS; 2022-08-24)
PROC: 3E0233Z Introduction of Anti-inflammatory into Muscle, Percutaneous Approach (ICD-10-PCS; 2022-08-24)
DX: N39.0 Urinary tract infection, site not specified (principal)
CPT/HCPCS: 36415; 72100-TC-FY; 80053; 81003; 85025; 87086; 87186; 99284-25

== ENCOUNTER → 2023-10-26 | Emergency (ER) | payer OTHER, BC ==
[~2023-10-26] MED LIST: ACETAMINOPHEN 325 MG TABLET (FP) ONE; ACETAMINOPHEN 325 MG TABLET (FP) PO ONE; ACETAMINOPHEN 500 MG TABLET (FP) ONE; ACETAMINOPHEN 500 MG TABLET (FP) PO ONE; NICARDIPINE 25 MG in DEXTROSE 5%-WATER - 240 ML IVPB SCH; niCARdipine HCL 25 MG/10 ML AMPUL IVPB ONE
[2023-10-26 01:56] VITALS: TEMP 98.3; BMI 19.5
[2023-10-26 04:34] LABS: INR 1.03 (0.83-1.09); PROTHROMBIN TIME (PATIENT) 11.9 SEC (9.7-13.0)
[2023-10-26 04:35] LABS: HEMATOCRIT 30.9 % (32.4-45.2); HEMOGLOBIN 9.8 GM/dL (10.7-15.3); MCH 27.8 pg (25.7-33.7); MCHC 31.7 g/dl (32.0-36.0); MEAN CELL VOLUME 87.6 fl (80-96); MEAN PLT VOLUME 7.2 fl (7.5-11.1); PLATELET COUNT 324 10^3/uL (134-434); RBC 3.52 M/mm3 (3.60-5.2); RDW 15.8 % (11.6-15.6); WHITE BLOOD COUNT 13.5 K/mm3 (4.0-10.0)
[2023-10-26 04:36] LABS: ACTIVATED PTT 24.8 SECONDS (25.2-36.5)
[2023-10-26 04:45] LABS: POTASSIUM 4.1 mmol/L (3.5-5.1)
[2023-10-26 04:47] LABS: CALCIUM 8.8 mg/dL (8.5-10.1)
[2023-10-26 04:48] LABS: ALBUMIN 2.8 g/dl (3.4-5.0); BLOOD UREA NITROGEN 19.1 mg/dL (7-18)
[2023-10-26 04:50] LABS: CREATININE 0.3 mg/dL (0.55-1.3)
[2023-10-26 04:52] LABS: BILIRUBIN,TOTAL 0.3 mg/dL (0.2-1); TOT PROT 5.8 g/dl (6.4-8.2)
[2023-10-26 10:18] VITALS: RESP 16
[2023-10-26 13:01] VITALS: BP 127/63; PULSE 94
== END | disposition admitted as inpatient to this hospital (09) ==
LOC: FER 01:46
DX: S43.402A Unspecified sprain of left shoulder joint, initial encounter (principal); M25.512 Pain in left shoulder; W01.0XXA Fall on same level from slipping, tripping and stumbling without subsequent striking against object, initial encounter; Y92.129 Unspecified place in nursing home as the place of occurrence of the external cause; Z20.822 Contact with and (suspected) exposure to COVID-19
CPT/HCPCS: 0241U-QW; 36415; 70450-TC; 71045-TC-FY; 73010-TC-FY; 73030-TC-LT-FY; 80053; 85027; 85610; 85730; 86850; 86900; 86901; 93005; 99285-25

== ENCOUNTER 2023-12-22 12:44 | Emergency (ER) | payer OTHER, BC ==
[2023-12-22] MEDS: ACETAMINOPHEN 325 MG TABLET (FP) PO ONE (14:00)
[2023-12-22] MEDS ORDERED: ACETAMINOPHEN 325 MG TABLET (FP) ONE (14:04)
[2023-12-22 14:31] VITALS: BP 157/79; PULSE 77; RESP 20; TEMP 98.3; BMI 18.3
[2023-12-22 14:37] LABS: HEMATOCRIT 30.8 % (32.4-45.2); HEMOGLOBIN 9.5 G/dL (10.7-15.3); MCH 27.3 pg (25.7-33.7); MEAN CELL VOLUME 88.1 fl (80-96); MEAN PLT VOLUME 7.5 fl (7.5-11.1); PLATELET COUNT 305.6 10^3/uL (134-434); RDW 16.9 % (11.6-15.6)
[2023-12-22 14:48] LABS: ALBUMIN 3.1 g/dl (3.4-5.0); BILIRUBIN,TOTAL 0.4 mg/dl (0.2-1); CALCIUM 8.3 mg/dl (8.5-10.1); CREATININE 0.3 mg/dl (0.6-1.3); POTASSIUM 3.9 mmol/L (3.5-5.1); TOT PROT 4.9 g/dl (6.4-8.2)
[2023-12-22 14:52] LABS: PLATELET ESTIMATE ADEQUATE
[2023-12-22 14:53] LABS: ANISOCYTOSIS 1+; OVALOCYTE 1+
== END 2023-12-22 16:41 | disposition home or self-care (01) ==
LOC: FER 12:44
DX: M79.622 Pain in left upper arm (principal); S42.342A Displaced spiral fracture of shaft of humerus, left arm, initial encounter for closed fracture; W01.198A Fall on same level from slipping, tripping and stumbling with subsequent striking against other object, initial encounter; Y93.01 Activity, walking, marching and hiking
CPT/HCPCS: 36415; 71045-TC-FY; 73060-TC-LT-FY; 73070-TC-LT-FY; 73090-TC-LT-FY; 80053; 85025; 99284-25